=== PATIENT | female | born 1955 | race African-American/Black ===

== ENCOUNTER 2022-03-12 15:35 | Emergency (ER) | payer SELFPAY ==
[~2022-03-12] VITALS: Ht 162.6 cm; Wt 67.0 kg
[2022-03-12] MEDS ORDERED: ACETAMINOPHEN 325MG TABLET PO ONE (18:15)
[2022-03-12] MEDS ORDERED: TOPUD PO (18:55)
[2022-03-12 19:17] VITALS: BP 147/73
== END 2022-03-12 19:19 | disposition home or self-care (01) ==
LOC: ER 16:01
DX: S09.8XXA Other specified injuries of head, initial encounter (principal); M54.2 Cervicalgia; R07.89 Other chest pain; M25.512 Pain in left shoulder; M25.562 Pain in left knee; R03.0 Elevated blood-pressure reading, without diagnosis of hypertension; V49.59XA Passenger injured in collision with other motor vehicles in traffic accident, initial encounter; Y93.89 Activity, other specified; Y92.488 Other paved roadways as the place of occurrence of the external cause
CPT/HCPCS: 71045; 73030; 73560; 99284

== ENCOUNTER 2023-04-15 12:48 | Emergency (ER) | payer OTHER ==
[~2023-04-15] VITALS: Ht 162.6 cm; Wt 61.0 kg
[~2023-04-15 12:48] MED LIST: TOPUD PO
[2023-04-15 12:56] VITALS: BP 96/59; PULSE 86; RESP 12; TEMP 98.5; O2SAT 99
[2023-04-15] MEDS ORDERED: NIRM1TAB4 PO (13:13)
== END 2023-04-15 14:01 | disposition home or self-care (01) ==
LOC: ER 14:00
DX: U07.1 COVID-19 (principal)
CPT/HCPCS: 99281